=== PATIENT | female | born 1955 | race Two or more races ===

== ENCOUNTER → 2024-06-14 | Outpatient (CLI) | payer MEDICARE, MEDICAID, SELFPAY ==
--- NOTE | 2024-06-14 10:00 | XR_ITS ---
Examination: CT abdomen with intravenous contrast. Coronal 2-D reconstructions. Sagittal 2-D reconstructions. Date and time of exam:June 14, 2024 1054 hours INDICATIONS: Right upper abdominal pain beginning 2 years ago CTDI: vol (mGy): 10.4 DLP: (mGycm): 329 Technique: Axial images of the abdomen have been obtained, 3 mm slice thickness, 60 cc [id number] 2-D sagittal coronal reconstructions Low dose protocols were performed. One or more of the following dose reduction techniques were used; automated exposure control, adjustment of the mA and/or KV according to patient size, use of iterative reconstruction technique. Findings: No focal liver or splenic lesions Absent gallbladder No pancreatic or adrenal mass 6 mm posterior right renal calculus, no hydronephrosis or ureteral calculi Aorta normal size No bowel obstruction Normal appendix IMPRESSION: 6 mm posterior right renal calculus, no hydronephrosis or ureteral calculi Normal appendix
== END | disposition home or self-care (01) ==
PROVIDERS: PCP Family Medicine; Referring Provider Family Medicine; Visit Provider Family Medicine
DX: N20.0 Calculus of kidney (principal)
CPT/HCPCS: 74160; A4649; Q9967